=== PATIENT | female | born 1990 | race Two or more races ===

== ENCOUNTER 2024-04-30 20:01 | Observation (INO) | payer MEDICAID, SELFPAY ==
[2024-04-30] VITALS (10 sets, daily range): BP systolic 119–158; BP diastolic 61–93; PULSE 68–85; RESP 16–100; TEMP 36.6–36.7; O2SAT 100; BMI 56.0
--- NOTE | 2024-04-30 19:26 | PD.EDSOB ---
ED SOB =RME/HPI General Chief Complaint: Headache Stated Complaint: 32 WKS PREG, CONSTANT OHARA SINCE AM, SOB Time Seen by Provider: 04/30/24 19:19 Arrival date/time: 04/30/24 18:58 33F with history of pre-eclampsia presents to ED with 1 day of OHARA and several hours of SOB. Patient is 32 weeks . Patient denies CP, URI symptoms and unilateral leg swelling/pain. Patient needed to be seen in ED to be cleared to go upstairs. Limitations: no limitations Related Data Home Medications ?Medication ?Instructions ?Recorded ?Confirmed ferrous sulfate 325 mg (65 mg 325 mg PO QDAY 09/08/19 11/18/19 iron) tablet (iron) vitamins-iron fumarate 27 1 tab PO QDAY 09/08/19 11/18/19 mg iron-folic acid 0.8 mg tablet ( Vitamin) acetaminophen 500 mg tablet 500 mg PO Q6H PRN Pain 11/07/19 11/18/19 (Tylenol Extra Strength) Previous Rx's ?Medication ?Instructions ?Recorded fluticasone propionate 50 1 spray intranasal QDAY #16 grams 07/06/21 mcg/actuation nasal spray,suspension (Allergy Relief (fluticasone)) Allergies Allergy/AdvReac Type Severity Reaction Status Date / Time No Known Allergies Allergy Unknown Verified 04/30/24 19:00 Review of Systems Review of Systems Systems Reviewed: All systems reviewed, normal except as documented Constitutional Constitutional: Reports system reviewed and no additional complaints, except as documented, Reports as per HPI, Denies fever(s) and Reports headache(s) ENT Ears, Nose, Mouth, and Throat: Denies disequilibrium and Reports headache(s) Cardiovascular Cardiovascular: Reports system reviewed and no additional complaints, except as documented, Denies chest pain and Reports dyspnea Respiratory Respiratory: Reports system reviewed and no additional complaints, except as documented, Reports as per HPI, Denies cough and Reports dyspnea Gastrointestinal Gastrointestinal: Reports system reviewed and no additional complaints, except as documented, Denies abdominal pain, Denies nausea and Denies vomiting Neurologic Neurologic: Reports system reviewed and no additional complaints, except as documented, Denies confusion, Denies disequilibrium and Reports headache(s) Psychiatric Psychiatric: Denies confusion Past Medical History Past Medical History NEUROLOGIC: Positive Neurological Disorders and Migraine; Negative Seizures CARDIAC: Positive Cardiac Disorders and Hypertension (gestational); Negative Hypercholesterolemia or Congestive Heart Failure RESPIRATORY: Negative Chronic Obstructive Pulmonary Disease (COPD) GASTROINTESTINAL: Positive Gastrointestinal Disorders and Obesity GENITOURINARY: Negative Genitourinary Disorders or Renal Disease REPRODUCTIVE: Negative Previous Pregnancies MUSCULOSKELETAL: Negative Musculoskeletal Disorders ENDOCRINE: Negative Endocrine Disorders, Diabetes Mellitus Type 1 or Diabetes Mellitus Type 2 HEMATOLOGIC: Negative Blood Disorders OTHER HISTORY: Positive Hospitalization; Negative Blood Transfusions, Blood Transfusion Reaction or Anesthesia Reactions Family History FAMILY HISTORY: Negative Family Cardiac Disorders Surgical History SURGICAL: Negative Section Social History SMOKING STATUS: Never smoker ED Exam General Limitations: Present no limitations General appearance: Present alert and in no apparent distress Head Head exam: Present atraumatic Eye Eye exam: Present normal appearance, PERRL and EOMI ENT ENT exam: Present normal exam, normal oropharynx and mucous membranes moist Neck Neck exam: Present normal inspection, full ROM and trachea midline Chest Chest inspection: Present normal inspection and symmetric chest wall rise Respiratory Respiratory exam: Present normal lung sounds bilaterally Cardiovascular Cardiovascular exam: Present regular rate, normal rhythm and normal heart sounds Abdominal Exam Abdominal exam: Present soft and normal bowel sounds Extremities Exam Extremities exam: Present normal inspection and full ROM Back Exam Back exam: Present normal inspection and full ROM Neurological Exam Neurological exam: Present alert, oriented X3 and CN II-XII intact Psychiatric Psychiatric exam: Present normal affect and normal mood Skin Skin exam: Present warm, dry, intact and normal color Course Quality Measures none Vital Signs Vital signs: Vital Signs Temperature 97.9 F 04/30/24 19:07 Pulse Rate 68 04/30/24 19:07 Respiratory Rate 22 H 04/30/24 19:07 Blood Pressure 158/93 H 04/30/24 19:07 Pulse Oximetry (%) 100 04/30/24 19:07 Oxygen Delivery Method Room Air 04/30/24 19:07 O2 at 100% on RA and WNLs Shortness of Breath / Dyspnea MDM Narrative MDM Narrative:: 33F with history of pre-eclampsia presents to ED with 1 day of OHARA and several hours of SOB. Patient is 32 weeks . Patient denies CP, URI symptoms and unilateral leg swelling/pain. Patient needed to be seen in ED to be cleared to go upstairs. Physical exam reveals clear ENT and lungs. Normal WOB. Patient is afebrile, calm, and alert. Symptoms likely related to possible pre-eclampsia. Cleared to OB. Counseled if SOB remains after OB evaluates her, can come back. Patient data External records reviewed:: [facility] previous records Clinical information provided by:: patient Social determinants that could affect healthcare access:: none Patient has the following chronic illnesses:: pre-eclampsia How is presenting disease/condition affected by chronic disease/condition?: exacerbated by Evaluation data The following diagnostics were reviewed and interpreted by me:: other (specify) (none) Lab and/or radiology exams considered but not ordered:: not ordered Interpretation Summary: n/a Medications / Prescriptions Medications or Prescriptions considered but not ordered:: not ordered Medication administrations:: n/a Consultations Consultation(s) initiated? (list below): No Diagnosis Shortness of Breath Differential Diagnosis: acute exacerbation of chronic obstructive airways disease, congestive heart failure, community acquired pneumonia, asthma with exacerbation, pulmonary embolism and other (health screening, pre-eclampsia) Most likely diagnosis given after review of the tests above:: health screening Admission Indicated Admission indicated?: not indicated Admission Request Was there a request for admission?: No Disposition Plan Disposition Plan: Discharge Discharge Attestation Discharge Attestation: The patient and all family members were given an opportunity to ask questions and understood the discharge instructions. Discharge instructions specifically effects, indications for sooner follow up or return to the emergency department, and the expected course of current diagnosis. Patient condition: Stable Discharge Plan Plan Patient Disposition: HOME (Self Care) Disposition Comment: Stable Prescriptions/Referrals Prescriptions/Med Rec: No Action fluticasone propionate [Allergy Relief (fluticasone)] 50 mcg/actuation spray,suspension 1 spray intranasal QDAY Qty: 16 0RF Rx Instructions: administer into each nostril ferrous sulfate [iron] 325 mg (65 mg iron) Tablet 325 mg PO QDAY Vitamin 27 mg iron- 0.8 mg Tablet 1 tab PO QDAY acetaminophen [Tylenol Extra Strength] 500 mg Tablet 500 mg PO Q6H PRN (Reason: Pain) Problem List Clinical Impression: Encounter for health-related screening Patient/Caregiver Discharge Instructions Additional Instructions: Please follow-up with PCP within 24-48 hours and return immediately if symptoms worsen. Print Language: Palestinian Stand Alone Forms: Patient Portal Info Letter PA/SENIOR PREMIUM AUDITOR Supervising Physician NADEGE/BRYAN Supervising Physician: Dr. Luo
--- NOTE | 2024-04-30 19:43 | PC.NURSE ---
pt medically cleared, called up to OB for report.
--- NOTE | 2024-04-30 20:30 | XR_ITS ---
Examination: Transvaginal ultrasound of the pelvis, Limited Technique: Transvaginal sonographic images pelvis performed using camarena scale imaging Exam date and time: April 30, 2024 2146 hrs. Indications: Unknown cervical length Findings: Cervix 4.4 cm) Impression: Cervix 4.4 cm closed.
[2024-04-30 20:54] LABS: Collection Type, Urine Clean Catch
[2024-04-30] MEDS: RINGERS LACTATED 1000 ML 1,000 ML 999 ML IV (20:57)
[2024-04-30] MEDS: ACETAMINOPHEN 325 MG TABLET 650 MG PO (21:00)
[2024-04-30 21:06] LABS: Bacteria,Urine Rare; Bilirubin,Urine Negative (Negative); Blood,Urine Negative (Negative); Clarity,Urine Clear (Clear/Hazy); Color,Urine Lt-Yellow (Lt Yel-Yel); Glucose, Urine Negative (Negative); Hyaline Casts,Urine < 1 /hpf (0-1); Ketones,Urine Negative (Negative); Leukocyte Esterase,Urine Negative (Negative); Nitrite,Urine Negative (Negative); Protein,Urine Negative (Neg - Trace); RBC,Urine 2 /hpf (0-3); Specific Gravity,Urine 1.016 (1.001-1.035); Squamous Epithelial Cell,Urine 5 /hpf (0-5); Urobilinogen,Urine Negative mg/dL (0.0-1.0); WBC,Urine 2 /hpf (0-5)
[2024-04-30] MEDS: metFORMIN 500 MG TABLET PO (22:48)
--- NOTE | 2024-05-01 08:52 | PD.LDPN ---
Documentation for date of: 05/01/24 OB Labor Progress Note Status status: Category l Assessment and Plan Comments: Patient presented at 32wk for cramping, OHARA and SOB. Was cleared in ER for SOB before presenting to L&D. Normal vitals, afebrile Reactive NST, occasional ctx initially. Received 1L IVF and ctx fully resolved. Transvaginal cervical length showed cervical length 4.4cm. With IVF and tylenol, OHARA fully resolved. Patient feeling much better before discharge. She requested refill of metformin 500mg PO BID which I sent to her pharmacy. Follow up at routine ob visit Return precautions given Kim Armstrong MD
== END 2024-04-30 22:55 | disposition home or self-care (01) ==
PROVIDERS: Admitting Provider Obstetrics & Gynecology; PCP Family Medicine; Visit Provider Obstetrics & Gynecology
DX: O26.893 Other specified pregnancy related conditions, third trimester (principal); R51.9 Headache, unspecified; R10.30 Lower abdominal pain, unspecified; R06.02 Shortness of breath; Z3A.32 32 weeks gestation of pregnancy
CPT/HCPCS: 59025; 59899; 76830; 81001; G0378; J7120; A9270

== ENCOUNTER 2024-05-06 18:55 | Observation (INO) | payer MEDICAID, SELFPAY ==
[2024-05-06] VITALS (21 sets, daily range): BP systolic 131–154; BP diastolic 69–91; PULSE 86–107; RESP 15–100; TEMP 36.6; O2SAT 97–99; BMI 56.0
[2024-05-06 19:50] LABS: ROM Kit Lot # 578010271; ROM Swab Mixed By: RAWLT; Rupture of Fetal Membranes Negative (Negative); Swb Mxed in Solvent 1 min? Yes
[2024-05-06] MEDS: ACETAMINOPHEN 325 MG TABLET 1000 MG PO (20:03)
[2024-05-06 20:28] LABS: Basophils # (Auto) 0.1 Thou/mm3 (0.0-0.2); Basophils % (Auto) 1 % (0-2.5); Eosinophils # (Auto) 0.1 Thou/mm3 (0.0-0.5); Eosinophils % (Auto) 1 % (0-10); Hematocrit 35.1 % (36.0-46.0); Hemoglobin 11.6 g/dL (12.0-16.0); Immature Granulocytes % (Auto) 0 % (0-0); Immature Granulocytes Auto 0.02 Thou/mm3 (0.00-0.00); Lymphocytes # (Auto) 2.2 Thou/mm3 (1.0-4.8); Lymphocytes % (Auto) 21 % (10-50); Mean Corpuscular Hemoglobin 25.8 pg (25.0-35.0); Mean Corpuscular Volume 78 fL (80-100); Monocytes # (Auto) 0.8 Thou/mm3 (0.0-0.8); Monocytes % (Auto) 7 % (0-12); Neutrophils # (Auto) 7.5 Thou/mm3 (1.8-7.7); Neutrophils % (Auto) 70 % (37-80); Nucleated Red Blood Cell % 0 /100 WBC (0); Platelet Count 290 Thou/mm3 (140-440); RDW Standard Deviation 39.5 fL (36.4-46.3); White Blood Count 10.6 Thou/mm3 (3.6-11.0)
[2024-05-06 20:55] LABS: Alanine Aminotransferase 7 U/L (10-49); Albumin, Serum 3.9 gm/dL (3.5-5.0); Albumin/Globulin Ratio 1.3 (1.2-2.2); Alkaline Phosphatase 116 U/L (46-116); Anion Gap 10 (7-16); Aspartate Amino Transferase 15 U/L (0-34); BUN/Creatinine Ratio 15 Ratio (12-20); Bilirubin,Total 0.2 mg/dL (0.3-1.2); Blood Urea Nitrogen 9 mg/dL (9-23); Calcium 9.4 mg/dL (8.3-10.6); Calcium (Corrected) 9.5 mg/dL (8.5-10.1); Carbon Dioxide 22.4 mMol/L (20.0-31.0); Chloride 107 mMol/L (98-107); Creatinine (Component) 0.6 mg/dL (0.6-1.3); Estimated Creatinine Clearance 183.5 mL/min (>60); Globulin 2.9 gm/dL (2.3-3.5); Glucose 81 mg/dL (74-106); Osmolality,Calculated 275 (275-295); Potassium 4.1 mMol/L (3.4-5.1); Prothrombin Time 10.7 Seconds (9.0-12.2); Sodium 139 mMol/L (136-145); Total Protein 6.8 gm/dL (5.7-8.2); Uric Acid 4.3 mg/dL (3.1-7.8); eGFR > 60 See Note
[2024-05-06 20:58] LABS: Fibrinogen 703 mg/dL (175-375)
[2024-05-06 21:05] LABS: Collection Type, Urine Voided
[2024-05-06 21:20] LABS: Bacteria,Urine Rare; Bilirubin,Urine Negative (Negative); Blood,Urine Negative (Negative); Clarity,Urine Clear (Clear/Hazy); Color,Urine Lt-Yellow (Lt Yel-Yel); Glucose, Urine Negative (Negative); Hyaline Casts,Urine < 1 /hpf (0-1); Ketones,Urine Negative (Negative); Leukocyte Esterase,Urine Negative (Negative); Nitrite,Urine Negative (Negative); Protein,Urine Negative (Neg - Trace); RBC,Urine 1 /hpf (0-3); Specific Gravity,Urine 1.019 (1.001-1.035); Squamous Epithelial Cell,Urine 6 /hpf (0-5); Urobilinogen,Urine Negative mg/dL (0.0-1.0); WBC,Urine 3 /hpf (0-5)
== END 2024-05-06 21:36 | disposition home or self-care (01) ==
PROVIDERS: Admitting Provider Obstetrics & Gynecology; Visit Provider Obstetrics & Gynecology
DX: O26.893 Other specified pregnancy related conditions, third trimester (principal); Z3A.33 33 weeks gestation of pregnancy; M54.50 Low back pain, unspecified; R10.9 Unspecified abdominal pain
CPT/HCPCS: 36415; 59025; 80053; 81001; 84112; 84550; 85025; 85384; 85610; 85730; G0378; A9270

== ENCOUNTER 2024-05-26 13:44 | Outpatient (RCR) | payer MEDICAID, SELFPAY ==
--- NOTE | 2024-05-19 13:19 | XR_ITS ---
Examination: Biophysical profile, ultrasound Date and time of exam: May 19, 2024 1340 hours INDICATIONS: Diagnosis gestational diabetes Technique: Multiple transabdominal sonographic images of the pelvis abdomen obtained. Attention is directed to the breathing movement, gross body movement, amniotic fluid volume and tone. Findings: Amniotic fluid index 12.9 cm Total biophysical profile is 8 of 8. breathing movement is 2. Gross body movement is 2. tone is 2. Qualitative amniotic fluid volume is 2 Impression: Biophysical profile is 8 of 8.
[2024-05-19 14:27] VITALS: BP 156/79; PULSE 91; RESP 16; TEMP 36.7
--- NOTE | 2024-05-22 13:44 | XR_ITS ---
Examination: Biophysical profile, ultrasound Date and time of exam: May 22, 2024 1349 hours INDICATIONS: Diagnosis gestational diabetes Technique: Multiple transabdominal sonographic images of the pelvis abdomen obtained. Attention is directed to the breathing movement, gross body movement, amniotic fluid volume and tone. Findings: Amniotic fluid index 12.9 cm Total biophysical profile is 8 of 8. breathing movement is 2. Gross body movement is 2. tone is 2. Qualitative amniotic fluid volume is 2 Impression: Biophysical profile is 8 of 8.
[2024-05-22 14:04] VITALS: BP 187/86; PULSE 86; RESP 16; TEMP 36.7
[2024-05-22 14:51] LABS: Collection Type, Urine Clean Catch
[2024-05-22 15:03] LABS: Bacteria,Urine Rare; Bilirubin,Urine Negative (Negative); Blood,Urine Negative (Negative); Clarity,Urine Clear (Clear/Hazy); Color,Urine Lt-Yellow (Lt Yel-Yel); Glucose, Urine Negative (Negative); Ketones,Urine Trace (Negative); Leukocyte Esterase,Urine Negative (Negative); Nitrite,Urine Negative (Negative); PH,Urine 6.5 (5.0-7.0); Protein,Urine Trace (Neg - Trace); RBC,Urine 4 /hpf (0-3); Specific Gravity,Urine 1.032 (1.001-1.035); Squamous Epithelial Cell,Urine 5 /hpf (0-5); Urobilinogen,Urine Negative mg/dL (0.0-1.0); WBC,Urine 3 /hpf (0-5)
[2024-05-22 15:04] LABS: Basophils # (Auto) 0.1 Thou/mm3 (0.0-0.2); Basophils % (Auto) 1 % (0-2.5); Eosinophils # (Auto) 0.1 Thou/mm3 (0.0-0.5); Eosinophils % (Auto) 1 % (0-10); Hematocrit 31.9 % (36.0-46.0); Hemoglobin 10.5 g/dL (12.0-16.0); Immature Granulocytes % (Auto) 0 % (0-0); Immature Granulocytes Auto 0.02 Thou/mm3 (0.00-0.00); Lymphocytes # (Auto) 1.6 Thou/mm3 (1.0-4.8); Lymphocytes % (Auto) 18 % (10-50); Mean Corpuscular HGB Conc 32.9 g/dl (31.0-37.0); Mean Corpuscular Hemoglobin 25.4 pg (25.0-35.0); Mean Corpuscular Volume 77 fL (80-100); Monocytes # (Auto) 0.6 Thou/mm3 (0.0-0.8); Monocytes % (Auto) 6 % (0-12); Neutrophils # (Auto) 6.8 Thou/mm3 (1.8-7.7); Neutrophils % (Auto) 75 % (37-80); Nucleated Red Blood Cell % 0 /100 WBC (0); Platelet Count 232 Thou/mm3 (140-440); RDW Standard Deviation 40.1 fL (36.4-46.3); Red Blood Count 4.13 Miln/mm3 (4.00-5.20); White Blood Count 9.1 Thou/mm3 (3.6-11.0)
[2024-05-22 15:24] LABS: Alanine Aminotransferase 10 U/L (10-49); Albumin, Serum 3.5 gm/dL (3.5-5.0); Albumin/Globulin Ratio 1.3 (1.2-2.2); Alkaline Phosphatase 124 U/L (46-116); Anion Gap 10 (7-16); Aspartate Amino Transferase 15 U/L (0-34); BUN/Creatinine Ratio 14 Ratio (12-20); Bilirubin,Total 0.2 mg/dL (0.3-1.2); Blood Urea Nitrogen 11 mg/dL (9-23); Calcium (Corrected) 9.4 mg/dL (8.5-10.1); Carbon Dioxide 20.9 mMol/L (20.0-31.0); Chloride 108 mMol/L (98-107); Creatinine (Component) 0.8 mg/dL (0.6-1.3); Globulin 2.6 gm/dL (2.3-3.5); Glucose 74 mg/dL (74-106); LDH (Lactate Dehydrogenase) 160 U/L (120-246); Osmolality,Calculated 275 (275-295); Sodium 139 mMol/L (136-145); Total Protein 6.1 gm/dL (5.7-8.2); Uric Acid 5.9 mg/dL (3.1-7.8); eGFR > 60 See Note
[2024-05-22 15:30] LABS: INR 0.9 (0.9-1.3); Partial Thromboplastin Time 26.5 Seconds (22.0-36.0); Prothrombin Time 10.1 Seconds (9.0-12.2)
[2024-05-22 15:44] LABS: Fibrinogen 602 mg/dL (175-375)
--- NOTE | 2024-05-26 13:48 | XR_ITS ---
Examination: Biophysical profile, ultrasound Date and time of exam: May 26, 2024 1354 hrs. Indications: Diagnosis gestational diabetes Technique: Multiple transabdominal sonographic images of the pelvis abdomen obtained. Attention is directed to the breathing movement, gross body movement, amniotic fluid volume and tone. Findings: Amniotic fluid 14.2 cm Total biophysical profile is 8 of 8. breathing movement is 2. Gross body movement is 2. tone is 2. Qualitative amniotic fluid volume is 2 Impression: Biophysical profile is 8 of 8.
[2024-05-26 14:44] VITALS: BP 142/79; PULSE 83; RESP 16; TEMP 36.7
--- NOTE | 2024-05-26 15:58 | PD.LDHP ---
Documentation for date of: 05/26/24 OB Labor/Induct. HPI History of Present Illness : 3 Para: 2 Term pregnancies: 0 pregnancies: 0 Living children: 0 History of Abortions: Spontaneous and Elective: 0 History of sections: No History of : No Date of last menstrual period: 09/17/23 Gestational age based on last menstrual period: 38 History of present illness: 33 yh/o @36w0d was here for NST appointment. Patient had scheduled monitory for surveillance as she is a Gestational diabetic on insulin.Today on presentation andrew had elevated BP. On note she has 2 previous pregnancies affected by preclampsia. Recently andrew had elevated [facility] in her last appointmnet . Denied any headache, blurred vision , epigastric pain or SOB today . Persistent severe BP reading seen. History of Present Dating criteria: LMP confirmed by 1st trimester US Abnormal ultrasound findings: anatomy US normal fundal placenta no previa Labs Narrative: pending preeclampsia labs NIPT Low risk Past Medical History Surgical History SURGICAL: Negative Section Meds Home Medications and Allergies Home Medications ?Medication ?Instructions ?Recorded ?Confirmed ?Type ferrous sulfate 325 mg (65 mg 325 mg PO QDAY 09/08/19 05/06/24 History iron) tablet (iron) vitamins-iron fumarate 27 1 tab PO QDAY 09/08/19 05/06/24 History mg iron-folic acid 0.8 mg tablet ( Vitamin) acetaminophen 500 mg tablet 500 mg PO Q6H PRN Pain 11/07/19 05/06/24 History (Tylenol Extra Strength) aripiprazole 5 mg tablet 15 mg PO QDAY 05/06/24 05/06/24 History Allergies Allergy/AdvReac Type Severity Reaction Status Date / Time No Known Allergies Allergy Unknown Verified 05/06/24 19:21 OB Exam Physical Exam Vital signs: Temp Pulse Resp BP 98.0 F 83 16 142/79 H 05/22/24 14:04 05/26/24 14:44 05/26/24 14:44 05/26/24 14:44 Constitutional Constitutional: no acute distress Routine HEENT Exam Head: Present normocephalic and atraumatic Eye: Present EOMI and PERRL ENT: Present mucous membranes moist Routine Neck Exam Neck: Present supple and trachea midline Routine Cardiovascular Exam Cardiovascular: Present RRR Routine Abdominal Exam Abdominal: Present soft and normoactive bowel sounds Detailed Labor and Delivery Exam Comments: closed occasional contractions Routine Extremities Exam Extremities: Present full ROM Routine Skin Exam Skin: Present intact, dry and warm Routine Neurological Exam Neurological: Present alert, oriented X3 and CN II-XII intact Routine Psychiatric Exam Psychiatric: Present normal affect and normal thought process OB Results Labs 05/22/24 14:35 05/22/24 14:55 Impressions Impression: 33 Y/O @36W0D , Per LMP 1st trimesterUS, admitted for severe preeclampsia Elevtaed BP in severe range persistently On checking all her visits , BP were in 110-120s, Until last clinic visit Asymptomatic otherwise PreE labs pending , normal on 3rd h/o preE in all pregnancies GDM on insulin Previous Csection x2 fundal placenta OB Assessment & Plan Additional Plan Additional Plan Comment: admit to L&D Magnesium for seizure prophylaxis IV labetalol 20 boarded for RLTCS I explained the patient the indication of sever preE and timing of delivery 34 week or beyond at diagnosis Risk of prematurity explained Risk of continuing includes abruption , Seizure , stroke, IUFD.
[2024-05-26 16:55] LABS: Collection Type, Urine Clean Catch; RBC,Urine 0 /hpf (0-3)
[2024-05-26 17:05] LABS: Bilirubin,Urine Negative (Negative); Blood,Urine Negative (Negative); Clarity,Urine Clear (Clear/Hazy); Color,Urine Lt-Yellow (Lt Yel-Yel); Glucose, Urine Negative (Negative); Ketones,Urine Negative (Negative); Leukocyte Esterase,Urine Negative (Negative); Nitrite,Urine Negative (Negative); PH,Urine 6.5 (5.0-7.0); Protein,Urine Negative (Neg - Trace); Specific Gravity,Urine 1.012 (1.001-1.035); Squamous Epithelial Cell,Urine 2 /hpf (0-5); Urobilinogen,Urine Negative mg/dL (0.0-1.0); WBC,Urine 1 /hpf (0-5)
== END 2024-05-26 23:59 | disposition home or self-care (01) ==
LOC: S4S1 13:44
PROVIDERS: Obstetrics & Gynecology; PCP Family Medicine; Referring Provider Student in an Organized Health Care Education/Training Program; Visit Provider Student in an Organized Health Care Education/Training Program
DX: O24.414 Gestational diabetes mellitus in pregnancy, insulin controlled (principal); Z3A.36 36 weeks gestation of pregnancy
CPT/HCPCS: 36415; 59025; 76819; 80053; 81001; 83615; 84550; 85025; 85384; 85610; 85730

== ENCOUNTER 2024-05-26 15:54 | Inpatient (IN) | payer MEDICAID, SELFPAY ==
[2024-05-26] VITALS (43 sets, daily range): BP systolic 118–186; BP diastolic 66–105; PULSE 73–89; RESP 12–30; TEMP 36.7–36.8; O2SAT 95–100; BMI 56.3
--- NOTE | 2024-05-26 15:58 | ESHP_ITS ---
Documentation for date of: 05/26/24 OB Labor/Induct. HPI History of Present Illness : 3 Para: 2 Term pregnancies: 0 pregnancies: 0 Living children: 0 History of Abortions: Spontaneous and Elective: 0 History of sections: No History of : No Date of last menstrual period: 09/17/23 Gestational age based on last menstrual period: 38 History of present illness: 33 yh/o @36w0d was here for NST appointment. Patient had scheduled monitory for surveillance as she is a Gestational diabetic on insulin.Today on presentation andrew had elevated BP. On note she has 2 previous pregnancies affected by preclampsia. Recently andrew had elevated BP in [facility] in her last appointmnet . Denied any headache, blurred vision , epigastric pain or SOB today . Persistent severe BP reading seen. History of Present Dating criteria: LMP confirmed by 1st trimester US Abnormal ultrasound findings: anatomy US normal fundal placenta no previa Labs Narrative: pending preeclampsia labs NIPT Low risk Past Medical History Surgical History SURGICAL: Negative Section Meds Home Medications and Allergies Home Medications ?Medication ?Instructions ?Recorded ?Confirmed ?Type ferrous sulfate 325 mg (65 mg 325 mg PO QDAY 09/08/19 05/06/24 History iron) tablet (iron) vitamins-iron fumarate 27 1 tab PO QDAY 09/0705/06/24 History mg iron-folic acid 0.8 mg tablet ( Vitamin) acetaminophen 500 mg tablet 500 mg PO Q6H PRN Pain 05/06/24 History (Tylenol Extra Strength) aripiprazole 5 mg tablet 15 mg PO QDAY 05/06/2405/06 History Allergies Allergy/AdvReac Type Severity Reaction Status Date / Time No Known Allergies Allergy Unknown Verified 05/06/24 19:21 OB Exam Physical Exam Vital signs: Temp Pulse Resp BP 98.0 F 83 16 142/79 H 05/22/24 14:04 05/26/24 14:44 05/26/24 14:44 05/26/24 14:44 Constitutional Constitutional: no acute distress Routine HEENT Exam Head: Present normocephalic and atraumatic Eye: Present EOMI and PERRL ENT: Present mucous membranes moist Routine Neck Exam Neck: Present supple and trachea midline Routine Cardiovascular Exam Cardiovascular: Present RRR Routine Abdominal Exam Abdominal: Present soft and normoactive bowel sounds Detailed Labor and Delivery Exam Comments: closed occasional contractions Routine Extremities Exam Extremities: Present full ROM Routine Skin Exam Skin: Present intact, dry and warm Routine Neurological Exam Neurological: Present alert, oriented X3 and CN II-XII intact Routine Psychiatric Exam Psychiatric: Present normal affect and normal thought process OB Results Labs 05/22/24 14:35 05/22/24 14:55 Impressions Impression: 33 Y/O @36W0D , Per LMP 1st trimesterUS, admitted for severe preeclampsia Elevtaed BP in severe range persistently On checking all her visits , BP were in 110-120s, Until last clinic visit Asymptomatic otherwise PreE labs pending , normal on 3rd h/o preE in all pregnancies GDM on insulin Previous Csection x2 fundal placenta OB Assessment & Plan Additional Plan Additional Plan Comment: admit to L&D Magnesium for seizure prophylaxis IV labetalol 20 boarded for RLTCS I explained the patient the indication of sever preE and timing of delivery 34 week or beyond at diagnosis Risk of prematurity explained Risk of continuing includes abruption , Seizure , stroke, IUFD.
[2024-05-26] MEDS: NIFEdipine XL 30 MG TABCR PO ×2 (16:06→21:56)
[2024-05-26] MEDS: LABETALOL INJ 5 MG/ML VIAL 20 ML 20 MG IVP (16:36)
[2024-05-26] MEDS: Magnesium Sulfate 4 GM Ivpb 4 GM/50 ML BAG IV (16:48)
[2024-05-26 17:04] LABS: Basophils # (Auto) 0.1 Thou/mm3 (0.0-0.2); Basophils % (Auto) 1 % (0-2.5); Eosinophils # (Auto) 0.1 Thou/mm3 (0.0-0.5); Eosinophils % (Auto) 1 % (0-10); Hematocrit 32.6 % (36.0-46.0); Hemoglobin 10.8 g/dL (12.0-16.0); Immature Granulocytes % (Auto) 0 % (0-0); Immature Granulocytes Auto 0.01 Thou/mm3 (0.00-0.00); Lymphocytes % (Auto) 23 % (10-50); Mean Corpuscular HGB Conc 33.1 g/dl (31.0-37.0); Mean Corpuscular Hemoglobin 25.5 pg (25.0-35.0); Mean Corpuscular Volume 77 fL (80-100); Monocytes # (Auto) 0.6 Thou/mm3 (0.0-0.8); Monocytes % (Auto) 6 % (0-12); Neutrophils % (Auto) 69 % (37-80); Nucleated Red Blood Cell % 0 /100 WBC (0); Platelet Count 235 Thou/mm3 (140-440); RDW Standard Deviation 40.1 fL (36.4-46.3); Red Blood Count 4.23 Miln/mm3 (4.00-5.20); White Blood Count 8.6 Thou/mm3 (3.6-11.0)
[2024-05-26] MEDS: LABETALOL INJ 5 MG/ML VIAL 20 ML 40 MG IVP (17:17)
[2024-05-26 17:20] LABS: Albumin, Serum 3.7 gm/dL (3.5-5.0); Albumin/Globulin Ratio 1.3 (1.2-2.2); Alkaline Phosphatase 139 U/L (46-116); Anion Gap 9 (7-16); Aspartate Amino Transferase 13 U/L (0-34); BUN/Creatinine Ratio 12 Ratio (12-20); Bilirubin,Total 0.3 mg/dL (0.3-1.2); Blood Urea Nitrogen 7 mg/dL (9-23); Calcium 9.1 mg/dL (8.3-10.6); Calcium (Corrected) 9.3 mg/dL (8.5-10.1); Chloride 107 mMol/L (98-107); Creatinine (Component) 0.6 mg/dL (0.6-1.3); Globulin 2.8 gm/dL (2.3-3.5); Glucose 73 mg/dL (74-106); Magnesium 1.8 mg/dL (1.6-2.6); Osmolality,Calculated 272 (275-295); Potassium 3.7 mMol/L (3.4-5.1); Sodium 138 mMol/L (136-145); Total Protein 6.5 gm/dL (5.7-8.2); Uric Acid 5.6 mg/dL (3.1-7.8); eGFR > 60 See Note
[2024-05-26] MEDS: MAGNESIUM SULF 20 GM IVPB 20 GM/500 ML BAG IV (17:20)
[2024-05-26 17:28] LABS: Alanine Aminotransferase 10 U/L (10-49)
[2024-05-26 17:34] LABS: Syphilis Nonreactive (Nonreactive)
[2024-05-26] MEDS: ceFAZolin/D5W 2 GM IV 2 GM/100 ML BAG IV (17:51)
[2024-05-26] MEDS: METOCLOPRAMIDE INJ 5 MG/ML VIAL 2 ML 10 MG IVP (17:52)
[2024-05-26 18:33] LABS: INR 0.9 (0.9-1.3); Partial Thromboplastin Time 26.4 Seconds (22.0-36.0); Prothrombin Time 9.8 Seconds (9.0-12.2)
[2024-05-26 18:35] LABS: Fibrinogen 666 mg/dL (175-375)
[2024-05-26] MEDS: ONDANSETRON INJ 2 MG/ML INJ 2 ML 4 MG IV (20:52)
[2024-05-26] MEDS: OXYTOCIN in NS 20 units 20 UNIT/1,000 ML BAG 125 UNIT IV (20:57)
[2024-05-26] MEDS: DiphenhydrAMINE INJ 50 MG/ML VIAL 25 MG IV (21:31)
--- NOTE | 2024-05-26 21:39 | PD.LDDELS ---
Data (Ramirez) Data Hx Section: Yes : 3 Para: 2 Term: 2 : 0 : 0 Delivery Data (Ramirez) Labor Data ROM Date: 05/26/24 ROM Time: 18:49 Rupture Type: AROM Amniotic Fluid: Clear Delivery Data Delivery Date: 05/26/24 Delivery Time: 18:49 Gestational age (weeks): 36 Placenta Delivery Date: 05/26/24 Placenta Delivery Time: 18:50 Delivered by: James Dunaway Delivery nurse: Yudy Betancur Other staff at delivery: 2nd Nurse Other staff at delivery: AMARJIT Other staff at delivery: Nursery Nurse Other staff at delivery: Rosa Wilkerson Other staff at delivery: Efrain Wayne Other staff at delivery: Jovanna Espinosa Delivery Method Delivery: Delivery Type: Repeat Presentation: Vertex Anesthesia Type Primary Anesthesia: Spinal Placenta Placenta Delivery: Manual EBL Estimated blood loss (ml): 400 Umbilical Cord Nuchal Cord: x1 [place] Data (Ramirez) Data Infant Gender: Male Weight Grams: 3585 1 Minute Total: 8 5 Minute Total: 8
--- NOTE | 2024-05-26 21:40 | ESOP_ITS ---
Operative Note - GUILLOTINE OPERATOR Procedure Date of procedure: 05/26/24 Procedure Performed: repeat Low transverse Csection Indication: preclampsia with severe features previous Csection x2 Morbid obesity GDMA2 on insulin Pre-Op diagnosis: same Post-Op diagnosis: same Anesthesia type: Spinal Procedure description: Informed consent was obtained and the patient was taken to the operating room.? Identity was confirmed by double identifiers and she was placed on the operating table.The abdomen and perineum were prepped in the usual sterile fashion and a Greer catheter was placed to continuous drainage.? Sterile drapes were applied.??A Pfannenstiel skin incision was made with a scalpel and carried to the subcutaneous fat up to the rectus fascia.? The rectus fascia was incised on either side of the midline and the incisions were extended bilaterally.? The fascia was gently dissected off the ventral surface of the rectus muscle both superiorly and inferiorly. extensive adhesiolysis was done between musle , peritoneum. Carefully a peritioneal window created hysterotomy incision made and extended bluntly with finger. Rupture of membranes revealed clear fluid. The baby was found vertex presentation and was delivered via vertex. The umbilical cord , was doubly clamped, divided and the infant was handed over to the waiting team. The placenta delivered by controlled cord traction . The interior of the uterus was now thorougly cleaned of all blood and debris and membranes.?The? hysterotomy was closed using 0 vicryl suture in double layers. Once the repair was completed the hysterotomy was inspected, was noted to be adequately hemostatic. The rectus fascia was repaired using PDS in a running fashion.? The subcutaneous layer was now, approximated with 3-0 vicryl in double layers.? All bleeding points were cauterized using the Bovie.?The skin was closed using 4-0 Monocryl in a subcuticular fashion.? The skin was cleaned and a sterile dressing was applied. The patient was now undraped, the abdomen and back were thoroughly cleaned and she was now transferred to the recovery room in a stable condition Estimated blood loss (ml): 400 Surgical staff Operation Date: 05/26/24 18:00 Case Staff Assisting Surgeon: James Dunaway SALESFORCE BUSINESS ANALYST: Efrain Wayne RN First Assistant: Spring Reilly Diagnosis Problem List Completed Was Problem List Reviewed/Reconciled?: Yes
[2024-05-26 22:01] LABS: Magnesium 2.9 mg/dL (1.6-2.6)
[2024-05-27] VITALS (16 sets, daily range): BP systolic 104–140; BP diastolic 65–86; PULSE 76–90; RESP 17–19; TEMP 36.2–37.3; O2SAT 96–99
[2024-05-27] MEDS: KETOROLAC INJ 30 MG/ML VIAL IVP ×4 (00:13→18:16)
[2024-05-27 00:47] LABS: Basophils # (Auto) 0.1 Thou/mm3 (0.0-0.2); Basophils % (Auto) 1 % (0-2.5); Eosinophils # (Auto) 0.1 Thou/mm3 (0.0-0.5); Eosinophils % (Auto) 1 % (0-10); Hematocrit 33.5 % (36.0-46.0); Immature Granulocytes % (Auto) 0 % (0-0); Immature Granulocytes Auto 0.04 Thou/mm3 (0.00-0.00); Lymphocytes % (Auto) 16 % (10-50); Mean Corpuscular HGB Conc 32.8 g/dl (31.0-37.0); Mean Corpuscular Hemoglobin 25.2 pg (25.0-35.0); Mean Corpuscular Volume 77 fL (80-100); Monocytes # (Auto) 0.5 Thou/mm3 (0.0-0.8); Monocytes % (Auto) 4 % (0-12); Neutrophils # (Auto) 10.1 Thou/mm3 (1.8-7.7); Neutrophils % (Auto) 79 % (37-80); Nucleated Red Blood Cell % 0 /100 WBC (0); Platelet Count 214 Thou/mm3 (140-440); Red Blood Count 4.37 Miln/mm3 (4.00-5.20); White Blood Count 12.9 Thou/mm3 (3.6-11.0)
[2024-05-27] MEDS: MAGNESIUM SULF 20 GM IVPB 20 GM/500 ML BAG IV ×2 (05:01→16:09)
[2024-05-27 10:12] LABS: Basophils # (Auto) 0.1 Thou/mm3 (0.0-0.2); Basophils % (Auto) 1 % (0-2.5); Eosinophils # (Auto) 0.1 Thou/mm3 (0.0-0.5); Eosinophils % (Auto) 1 % (0-10); Hematocrit 33.7 % (36.0-46.0); Hemoglobin 10.9 g/dL (12.0-16.0); Immature Granulocytes % (Auto) 1 % (0-0); Immature Granulocytes Auto 0.05 Thou/mm3 (0.00-0.00); Lymphocytes % (Auto) 10 % (10-50); Mean Corpuscular HGB Conc 32.3 g/dl (31.0-37.0); Mean Corpuscular Hemoglobin 25.5 pg (25.0-35.0); Mean Corpuscular Volume 79 fL (80-100); Monocytes # (Auto) 0.5 Thou/mm3 (0.0-0.8); Monocytes % (Auto) 5 % (0-12); Neutrophils # (Auto) 8.3 Thou/mm3 (1.8-7.7); Neutrophils % (Auto) 83 % (37-80); Nucleated Red Blood Cell % 0 /100 WBC (0); Platelet Count 208 Thou/mm3 (140-440); Red Blood Count 4.28 Miln/mm3 (4.00-5.20)
[2024-05-27] MEDS: RINGERS LACTATED 1000 ML 1,000 ML 100 ML IV (10:29)
[2024-05-27 10:41] LABS: Alanine Aminotransferase 9 U/L (10-49); Albumin, Serum 3.4 gm/dL (3.5-5.0); Albumin/Globulin Ratio 1.5 (1.2-2.2); Alkaline Phosphatase 119 U/L (46-116); Anion Gap 7 (7-16); Aspartate Amino Transferase 17 U/L (0-34); BUN/Creatinine Ratio 8 Ratio (12-20); Bilirubin,Total 0.3 mg/dL (0.3-1.2); Blood Urea Nitrogen < 5 mg/dL (9-23); Calcium 7.9 mg/dL (8.3-10.6); Calcium (Corrected) 8.4 mg/dL (8.5-10.1); Carbon Dioxide 23.3 mMol/L (20.0-31.0); Chloride 106 mMol/L (98-107); Creatinine (Component) 0.6 mg/dL (0.6-1.3); Estimated Creatinine Clearance 184.3 mL/min (>60); Globulin 2.2 gm/dL (2.3-3.5); Glucose 158 mg/dL (74-106); Magnesium 3.9 mg/dL (1.6-2.6); Osmolality,Calculated 272 (275-295); Potassium 3.4 mMol/L (3.4-5.1); Sodium 136 mMol/L (136-145); Total Protein 5.6 gm/dL (5.7-8.2); eGFR > 60 See Note
--- NOTE | 2024-05-27 10:48 | PC.SS ---
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 LICENSED PHYSICAL THERAPIST ASSISTANT introduced self and role.? Present at patient?s bedsides was cousin, Sully.? Patient gave permission for cousin to be present during discussion.? Patient confirmed possessing diagnosis of Bi-Polar disorder.? Patient informed LICENSED PHYSICAL THERAPIST ASSISTANT alignment with psychiatric and counseling services.? Patient is prescribed Abilify.? Patient did take medication during 1st trimester of .? Patient to resume medication.? Patient reports no impairment with daily functioning.? Patient denies history of psychiatric hospitalizations.? Patient denies history of self-harm behaviors.? Infant, Julius; is the patient?s 3rd child.? Other children are ages 4yrs and 17 months.? delivered via .? Patient plans on combo feeding .? OB services provided by Dr. Dunaway.? Patient describes consistency with OB appointments.? Patient is receiving WIC, SNAP or TANF.? Patient denies history of alcohol/drug abuse.? Patient denies CWS intervention.? Patient denies episodes of domestic violence.? Doug SANDS; will not be participating in the rearing of the .? Patient denies possessing current level of depression.? Patient was engaged and responsive throughout discussion with LICENSED PHYSICAL THERAPIST ASSISTANT.? Patient has access to appropriate supplies and equipment; to include a car seat.? Family will provide transportation upon discharge.? Patient describes possessing support system consisting of mother and extended family.? LICENSED PHYSICAL THERAPIST ASSISTANT provided the patient with community resources to include Parenting Network and Warm Line.? No further intervention required at this time, health social work professor will be available to address any further concerns.? LICENSED PHYSICAL THERAPIST ASSISTANT updated bedside nurse.? Patient inquired if able to re-start Abilify home medication.? LICENSED PHYSICAL THERAPIST ASSISTANT updated bedside nurse on patient?s request.? Bedside nurse to follow up with the patient.?
[2024-05-27] MEDS: ACETAMINOPHEN 325 MG TABLET 650 MG PO ×2 (11:33→21:15)
--- NOTE | 2024-05-27 12:49 | ESPR_ITS ---
Subjective Subjective Interval history: Patient doing well overall. Pain is controlled. Receiving IV MgSO4 for 24hr PP for pre-eclampsia with severe features, so not yet ambulating. Greenfield in place draining clear yellow urine. Tolerated breakfast without nausea/vomiting. No fevers/chills, no CP/SOB. Exam Vital Signs Temp Pulse Resp BP Pulse Ox O2 Del Method 98.0 F 86 17 138/82 H 98 Room Air 05/27/24 10:10 05/27/24 10:10 05/27/24 10:10 05/27/24 10:10 05/27/24 10:10 05/27/24 10:10 Narrative Exam General: well developed, well nourished, no acute distress, conversant Cardiac: normal heart rate Lungs: breathing without distress Abdomen: soft, post-gravid, non-tender, no rebound or guarding, pressure dressing removed, pfannenstiel incision covered by dry/clean/intact prineo bandage. Incision well reapproximated. No erythema, drainage or induration. Fundus firm at u-2cm. Extremities: no pain with palpation of calves, trace edema of BLE, SCDs on and functioning Objective Labs 05/27/24 09:37 05/27/24 09:37 Labs: Laboratory Results - last 24 hr 05/26/24 05/26/24 05/27/24 16:30 21:21 00:25 WBC 8.6 12.9 H D RBC 4.23 4.37 Hgb 10.8 L 11.0 L Hct 32.6 L 33.5 L MCV 77 L 77 L MCH 25.5 25.2 MCHC 33.1 32.8 RDW Std Deviation 40.1 40.0 Plt Count 235 214 Neut % (Auto) 69 79 Lymph % (Auto) 23 16 [place] % (Auto) 6 4 Eos % (Auto) 1 1 Baso % (Auto) 1 1 Neut # (Auto) 6.0 10.1 H Lymph # (Auto) 2.0 2.0 [place] # (Auto) 0.6 0.5 Eos # (Auto) 0.1 0.1 Baso # (Auto) 0.1 0.1 Immature Gran # (Auto) 0.01 H 0.04 H Absolute Nucleated RBC 0.00 0.00 Immature Gran % 0 0 Nucleated RBC % 0 0 PT 9.8 INR 0.9 APTT 26.4 Fibrinogen 666 H* Sodium 138 Potassium 3.7 Chloride 107 Carbon Dioxide 22.0 Anion Gap 9 BUN 7 L Creatinine 0.6 Estim Creat Clear Calc Not Performed. eGFR > 60 BUN/Creatinine Ratio 12 Glucose 73 L Calculated Osmolality 272 L Uric Acid 5.6 Calcium 9.1 Corrected Calcium 9.3 Magnesium 1.8 2.9 H Total Bilirubin 0.3 AST 13 ALT 10 Alkaline Phosphatase 139 H Total Protein 6.5 Albumin 3.7 Globulin 2.8 Albumin/Globulin Ratio 1.3 Syphilis Serology Nonreactive Blood Type O Positive Antibody Screen NEGATIVE Blood Bank Wristband ID Yes 05/27/24 09:37 WBC 10.0 RBC 4.28 Hgb 10.9 L Hct 33.7 L MCV 79 L MCH 25.5 MCHC 32.3 RDW Std Deviation 42.0 Plt Count 208 Neut % (Auto) 83 H Lymph % (Auto) 10 [place] % (Auto) 5 Eos % (Auto) 1 Baso % (Auto) 1 Neut # (Auto) 8.3 H Lymph # (Auto) 1.0 [place] # (Auto) 0.5 Eos # (Auto) 0.1 Baso # (Auto) 0.1 Immature Gran # (Auto) 0.05 H Absolute Nucleated RBC 0.00 Immature Gran % 1 H Nucleated RBC % 0 PT INR APTT Fibrinogen Sodium 136 Potassium 3.4 Chloride 106 Carbon Dioxide 23.3 Anion Gap 7 BUN < 5 L Creatinine 0.6 Estim Creat Clear Calc 184.3 eGFR > 60 BUN/Creatinine Ratio 8 L Glucose 158 H D Calculated Osmolality 272 L Uric Acid Calcium 7.9 L Corrected Calcium 8.4 L Magnesium 3.9 H Total Bilirubin 0.3 AST 17 ALT 9 L Alkaline Phosphatase 119 H D Total Protein 5.6 L Albumin 3.4 L Globulin 2.2 L Albumin/Globulin Ratio 1.5 Syphilis Serology Blood Type Antibody Screen Blood Bank Wristband ID Assessment & Plan Problem List (1) Pre-eclampsia, severe, delivered: Status: Acute Assessment and plan: Kiki is a 33yo G3 nowP3 s/p uncomplicated RLTCS at 36wk for pre-eclampsia with severe features, doing well on POD 1. She is receiving IV MgSO4 for 24hr PP. Vitals wnl, benign exam. Nifedipine was held this morning for normotensive bp's. She is hemodynamically stable with no evidence of infection. Post-op Hgb 10.9. complicated by: -A2GDM treated with insulin (lantus 12u am, 10u qhs) -Hx of section x2 -Hx of pre-eclampsia x2 -Severe obesity (BMI 56 currently) -Bipolar disorder taking abilify 15mg PO QD Plan: -Continue routine /post-op care -Continue IV MgSO4 until 24hr post- with Mg checks, neuro checks and greenfield catheter in place for strict I/Os -Once IV MgSO4 is discontinued, remove greenfield with 6hr due to void -Carb consistent diet -Fingerstick glucose checks QID. Will half insulin regimen to lantus 5u qam and qhs. -Toradol 30mg IV Q6hr x4 doses, then motrin 800mg PO Q8hr. For breakthrough: norco 5/325mg PO Q6hr prn pain -Continue abilify -Resume nifedipine if bp's persistently mild range -Encourage ambulation once IV MgSO4 is stopped and use of IS (2) care following delivery: Status: Acute (3) Gestational diabetes requiring insulin: Status: Acute (4) Obesity compl pregn//puerperp: Status: Acute (5) Bipolar disease during in third trimester: Status: Acute Time Spent With Patient Time: Total time spent is greater than 50% in coordination of care (as documented) at patient's floor/unit and/or counseling patient:
[2024-05-27] MEDS: INSULIN GLARGINE (Lantus) 5 UNIT/0.05 ML (PER 5 UNITS) SC (18:14)
[2024-05-28] VITALS (11 sets, daily range): BP systolic 121–153; BP diastolic 70–92; PULSE 80–89; RESP 16–19; TEMP 36.7–36.9; O2SAT 95–98
[2024-05-28] MEDS: HYDROcodone/APAP 5/325 TABLET 2 TAB PO ×4 (02:04→22:03)
[2024-05-28] MEDS: NIFEdipine XL 30 MG TABCR PO ×2 (08:25→20:51)
[2024-05-28] MEDS: INSULIN GLARGINE (Lantus) 5 UNIT/0.05 ML (PER 5 UNITS) SC ×2 (08:30→18:38)
[2024-05-28] MEDS: IBUPROFEN TAB 400 MG TABLET 800 MG PO ×2 (12:41→20:51)
--- NOTE | 2024-05-28 15:18 | PD.LDPPPRG ---
Subjective Subjective Interval history: Patient doing well overall. Pain is controlled. She is ambulating no lightheadedness/dizziness. Voiding spontaneously since greenfield was removed, no issues. Tolerating regular diet without nausea/vomiting. Passing gas, no BM yet. No fevers/chills, no CP/SOB. No OHARA/vision changes/RUQ pain. Baby now in room with her. Exam Vital Signs Temp Pulse Resp BP Pulse Ox O2 Del Method 98.5 F 87 17 140/86 H 97 Room Air 05/28/24 12:41 05/28/24 12:30 05/28/24 12:30 05/28/24 12:30 05/28/24 12:30 05/28/24 12:30 Narrative Exam General: well developed, well nourished, no acute distress, conversant Cardiac: normal heart rate Lungs: breathing without distress Abdomen: soft, post-gravid, non-tender, no rebound or guarding, pfannenstiel incision covered by dry/clean/intact prineo bandage. Incision well reapproximated. No erythema, drainage or induration. Fundus firm at u-2cm. Extremities: no pain with palpation of calves, 1+ edema of BLE Objective Labs 05/27/24 09:37 05/27/24 09:37 Labs: Laboratory Results - last 24 hr 05/27/24 15:10 Magnesium 4.0 H Assessment & Plan Problem List (1) Pre-eclampsia, severe, delivered: Status: Acute Assessment and plan: Kiki is a 33yo G3 nowP3 s/p uncomplicated RLTCS at 36wk for pre-eclampsia with severe features, doing well on POD 2. She received IV MgSO4 for 24hr PP (stopped last night). BPs normal to mild range (higher mild range more recently), benign exam. She is hemodynamically stable with no evidence of infection. Post-op Hgb 10.9. complicated by: -A2GDM treated with insulin (lantus 12u am, 10u qhs) -Hx of section x2 -Hx of pre-eclampsia x2 -Severe obesity (BMI 56 currently) -Bipolar disorder taking abilify 15mg PO QD Plan: -Continue routine /post-op care -Carb consistent diet -Fingerstick glucose checks QID. Halved insulin regimen to lantus 5u qam and qhs with good glycemic control (fasting glucose 90's this morning) -Motrin 800mg PO Q8hr. For breakthrough: norco 5/325mg PO Q6hr prn pain -Continue abilify -Continue Nifedipine 30mg XL PO BID. Will also add labetalol 200mg PO TID to try to get good bp control today. Will titrate as needed. -Encourage ambulation and use of IS -Hope for discharge tomorrow if meeting all milestones with bp well controlled (2) care following delivery: Status: Acute (3) Gestational diabetes requiring insulin: Status: Acute (4) Obesity compl pregn//puerperp: Status: Acute (5) Bipolar disease during in third trimester: Status: Acute Time Spent With Patient Time: Total time spent is greater than 50% in coordination of care (as documented) at patient's floor/unit and/or counseling patient:
[2024-05-28] MEDS: LABETALOL 100 MG TABLET 200 MG PO ×2 (15:41→22:02)
[2024-05-28] MEDS: Milk Of Magnesia Susp 30 ML UDC PO (19:33)
[2024-05-28] MEDS: SIMETHICONE 80 MG CHEW PO (19:33)
[2024-05-29] MEDS: HYDROcodone/APAP 5/325 TABLET 2 TAB PO ×2 (04:20→11:01)
[2024-05-29 05:50] VITALS: BP 138/86; PULSE 86; RESP 16; TEMP 36.8; O2SAT 95
[2024-05-29 06:00] VITALS: BP 138/86; PULSE 86
[2024-05-29] MEDS: LABETALOL 100 MG TABLET 200 MG PO (06:00)
[2024-05-29 08:00] VITALS: BP 126/84; PULSE 85; RESP 20; TEMP 36.6; O2SAT 97
[2024-05-29 08:18] VITALS: BP 126/84; PULSE 85
[2024-05-29] MEDS: Milk Of Magnesia Susp 30 ML UDC PO (08:18)
[2024-05-29] MEDS: NIFEdipine XL 30 MG TABCR PO (08:18)
[2024-05-29] MEDS: SIMETHICONE 80 MG CHEW PO (08:18)
[2024-05-29] MEDS: INSULIN GLARGINE (Lantus) 5 UNIT/0.05 ML (PER 5 UNITS) SC (08:19)
[2024-05-29] MEDS: IBUPROFEN TAB 400 MG TABLET 800 MG PO (08:25)
--- NOTE | 2024-05-29 11:15 | ESDS_ITS ---
DS: Providers Provider Date of admission: 05/26/24 15:54 Primary care physician: Physician No Primary/Family Admitting Provider: James Dunaway MD Attending Provider on Admission: James Dunaway MD Consults: 05/26/24 18:22 Referral Routine Comment: Attending Provider on DC: James Dunaway MD Discharging Provider: James Dunaway MD DS: Diagnosis Problem List Completed Was Problem List Reviewed/Reconciled?: Yes Summary/Hosp Course Brief History: patient denied to have any fever , vaginal discharge , bleeding . Is passing gas , had a bowel movement . Overall feeling well. No more elevated blood pressure, is on labetalol and procardia Peripartum Data Procedures: Procedures Operation Date: 05/26/24 18:00 Actual Procedure Side Surgeon p in OB Not Applicable James Dunaway MD Status at Discharge Cognitive/behavioral status at discharge: stable Time Spent with Patient Time attestation: Total time spent providing and/or coordinating discharge services: Exam Vital Signs Temp Pulse Resp BP Pulse Ox O2 Del Method 97.8 F 85 20 126/84 97 Room Air 05/29/24 08:00 05/29/24 08:18 05/29/24 08:00 05/29/24 08:18 05/29/24 08:00 05/29/24 08:00 Constitutional Constitutional: no acute distress Routine HEENT Exam Head: Present normocephalic and atraumatic Eye: Present EOMI and PERRL ENT: Present mucous membranes moist Routine Neck Exam Neck: Present supple and trachea midline Routine Respiratory Exam Respiratory: Present chest non-tender, lungs clear, normal breath sounds and no resp distress Routine Cardiovascular Exam Cardiovascular: Present RRR Routine Abdominal Exam Abdominal: Present soft and normoactive bowel sounds Routine Extremities Exam Extremities: Present full ROM Routine Skin Exam Skin: Present intact, dry and warm Routine Neurological Exam Neurological: Present alert, oriented X3 and CN II-XII intact Routine Psychiatric Exam Psychiatric: Present normal affect and normal thought process Discharge Plan Plan Patient Disposition: HOME (Self Care) Patient condition on transfer: Stable Prescriptions/Referrals Prescriptions/Med Rec: New acetaminophen-codeine 300-15 mg tablet 1 tab PO Q12H PRN (Reason: pain) Qty: 14 0RF ibuprofen 800 mg tablet 800 mg PO Q8H PRN (Reason: pain) Qty: 30 0RF labetalol 200 mg tablet 200 mg PO BID Qty: 30 0RF nifedipine [Procardia XL] 30 mg tablet extended release 24hr 30 mg PO QDAY Qty: 20 0RF No Action ferrous sulfate [iron] 325 mg (65 mg iron) Tablet 325 mg PO QDAY Vitamin 27 mg iron- 0.8 mg Tablet 1 tab PO QDAY acetaminophen [Tylenol Extra Strength] 500 mg Tablet 500 mg PO Q6H PRN (Reason: Pain) metformin 500 mg tablet 500 mg PO BID Qty: 60 0RF aripiprazole 5 mg tablet 15 mg PO QDAY Patient Comments: TAKE THREE TABLETS BY MOUTH EVERY DAY Referrals: No Primary/Family,Physician [Primary Care Provider] - Patient/Caregiver Discharge Instructions Discharge Activity: activity as tolerated and other Other Discharge Activity Instructions:: vaginal rest and no heavy lifting more than 10 pounds for 6 [address] while taking narcotic. keep incision cl noe and dry. Other Discharge Diet Instructions: carb consistent diet Education Materials: C Section Dc Print Language: [place] Activity Restrictions/Additional Instructions: follow up in 1 week for incision check and bp check with Dr. Dunaway. Call clinic to schedule appointment. Stand Alone Forms: Pratibha Award Info., Patient Portal Info Letter Discharge Order Discharge Orders: Discharge (Routine); Ordered 05/29/24 Ordered By: James Dunaway Planned Discharge Date 05/29/24
== END 2024-05-29 12:00 | disposition home or self-care (01) | DRG 540 ==
LOC: S4SX 17:14 → S4NX 21:20
PROVIDERS: Obstetrics & Gynecology; Admitting Provider Student in an Organized Health Care Education/Training Program; Visit Provider Student in an Organized Health Care Education/Training Program
PROC: 10D00Z1 Extraction of Products of Conception, Low, Open Approach (ICD-10-PCS; CPT 59514; principal; 2024-05-26 17:45)
DX: O34.211 Maternal care for low transverse scar from previous cesarean delivery (principal); E66.01 Morbid (severe) obesity due to excess calories; O99.214 Obesity complicating childbirth; Z37.0 Single live birth; O69.81X0 Labor and delivery complicated by cord around neck, without compression, not applicable or unspecified; O24.424 Gestational diabetes mellitus in childbirth, insulin controlled; Z3A.36 36 weeks gestation of pregnancy; O14.14 Severe pre-eclampsia complicating childbirth; O99.344 Other mental disorders complicating childbirth; F31.9 Bipolar disorder, unspecified
CPT/HCPCS: 36415; 59409; 80053; 83735; 84550; 85025; 85384; 85610; 85730; 86780; 86850; 86900; 86901; 94762; A4649; J0689; J1200; J1815; J1885; J2274; J2371; J2405; J2590; J2765; J3010; J3475; J3490; J7120; A9270; J1920; J2270

== ENCOUNTER 2024-08-17 15:31 | Emergency (ER) | payer MEDICAID, SELFPAY ==
[2024-08-17 15:44] VITALS: BP 167/106; PULSE 95; RESP 18; TEMP 37.1; O2SAT 99; BMI 49.5
--- NOTE | 2024-08-17 15:54 | XR_ITS ---
Examination: CT abdomen and pelvis without contrast. Coronal 3-D reconstructions. Sagittal 2-D reconstructions. Date and time of exam:August 17, 2024 at 1746 hours INDICATIONS: Umbilical pain beginning 3 days ago CTDI: vol (mGy): 21.3 DLP: (mGycm): 1234 Technique: Axial images of the abdomen have been obtained, 3 mm slice thickness Intravenous contrast material has not been administered. Low dose protocols were performed. One or more of the following dose reduction techniques were used; automated exposure control, adjustment of the mA and/or KV according to patient size, use of iterative reconstruction technique. Findings: No focal liver or splenic lesions No gallstones No pancreatic edema, normal adrenal glands No renal or ureteral calculi, no hydronephrosis 33 mm umbilical hernia containing fat, possible incarcerated fat No bowel obstruction No diverticulitis Normal appendix Intrauterine device is low in position in the uterus in the uterine body, sagittal image 110 Partially contracted urinary bladder IMPRESSION: 33 mm umbilical hernia containing fat, possibly incarcerated fat, clinical correlation is advised Normal appendix Intrauterine device is low in position in the uterus, in the uterine body
--- NOTE | 2024-08-17 15:54 | PD.EDRME ---
Rapid Medical Screening Exam RME Arrival date/time: 08/17/24 15:31 This is a case of 33-year-old female with history of hernia came in in the emergency room due to abdominal pain with fever headache nausea vomiting and diarrhea for 3 days worsening of the symptoms this patient decided to start consult here in the emergency room Chief Complaint: Abdominal Pain Time Seen by Provider: 08/17/24 15:53 Vital signs: Vital Signs Temperature 98.7 F 08/17/24 15:44 Pulse Rate 95 08/17/24 15:44 Respiratory Rate 18 08/17/24 15:44 Blood Pressure 167/106 H 08/17/24 15:44 Pulse Oximetry (%) 99 08/17/24 15:44 Oxygen Delivery Method Room Air 08/17/24 15:44
[2024-08-17 16:39] LABS: Basophils # (Auto) 0.1 Thou/mm3 (0.0-0.2); Basophils % (Auto) 1 % (0-2.5); Eosinophils # (Auto) 0.2 Thou/mm3 (0.0-0.5); Eosinophils % (Auto) 1 % (0-10); Hematocrit 37.8 % (36.0-46.0); Hemoglobin 12.2 g/dL (12.0-16.0); Immature Granulocytes % (Auto) 0 % (0-0); Immature Granulocytes Auto 0.04 Thou/mm3 (0.00-0.00); Lymphocytes # (Auto) 2.4 Thou/mm3 (1.0-4.8); Lymphocytes % (Auto) 18 % (10-50); Mean Corpuscular HGB Conc 32.3 g/dl (31.0-37.0); Mean Corpuscular Hemoglobin 25.7 pg (25.0-35.0); Mean Corpuscular Volume 80 fL (80-100); Monocytes # (Auto) 0.7 Thou/mm3 (0.0-0.8); Monocytes % (Auto) 5 % (0-12); Neutrophils # (Auto) 9.8 Thou/mm3 (1.8-7.7); Neutrophils % (Auto) 74 % (37-80); Nucleated Red Blood Cell % 0 /100 WBC (0); Platelet Count 398 Thou/mm3 (140-440); RDW Standard Deviation 44.4 fL (36.4-46.3); Red Blood Count 4.75 Miln/mm3 (4.00-5.20); White Blood Count 13.2 Thou/mm3 (3.6-11.0)
[2024-08-17 17:08] LABS: Alanine Aminotransferase 20 U/L (10-49); Albumin, Serum 4.7 gm/dL (3.5-5.0); Albumin/Globulin Ratio 1.5 (1.2-2.2); Alkaline Phosphatase 96 U/L (46-116); Anion Gap 6 (7-16); Aspartate Amino Transferase 19 U/L (0-34); BUN/Creatinine Ratio 19 Ratio (12-20); Bilirubin,Total 0.3 mg/dL (0.3-1.2); Blood Urea Nitrogen 15 mg/dL (9-23); Calcium 9.7 mg/dL (8.3-10.6); Calcium (Corrected) 9.7 mg/dL (8.5-10.1); Carbon Dioxide 27.6 mMol/L (20.0-31.0); Chloride 105 mMol/L (98-107); Creatinine (Component) 0.8 mg/dL (0.6-1.3); Estimated Creatinine Clearance 127.4 mL/min (>60); Globulin 3.1 gm/dL (2.3-3.5); Glucose 102 mg/dL (74-106); Lipase 41 U/L (12-53); Osmolality,Calculated 278 (275-295); Potassium 3.9 mMol/L (3.4-5.1); Sodium 139 mMol/L (136-145); Total Protein 7.8 gm/dL (5.7-8.2); eGFR > 60 See Note
[2024-08-17 17:17] LABS: Collection Type, Urine Clean Catch
[2024-08-17 17:24] LABS: HCG Qualitative,Urine Negative
[2024-08-17 17:27] LABS: Bilirubin,Urine Negative (Negative); Blood,Urine 2+ (Negative); Clarity,Urine Clear (Clear/Hazy); Color,Urine Lt-Yellow (Lt Yel-Yel); Glucose, Urine Negative (Negative); Ketones,Urine Negative (Negative); Leukocyte Esterase,Urine Negative (Negative); Nitrite,Urine Negative (Negative); PH,Urine 5.5 (5.0-7.0); Protein,Urine Negative (Neg - Trace); RBC,Urine 6 /hpf (0-3); Specific Gravity,Urine 1.027 (1.001-1.035); Squamous Epithelial Cell,Urine 12 /hpf (0-5); Urobilinogen,Urine Negative mg/dL (0.0-1.0); WBC,Urine 3 /hpf (0-5)
[2024-08-17 20:39] VITALS: BP 148/90; PULSE 67; RESP 16; TEMP 36.8; O2SAT 97
--- NOTE | 2024-08-17 23:40 | PD.EDABDPN ---
ED Abdominal Pain RME/HPI General Chief Complaint: Abdominal Pain Stated complaint: umbilical hernia pain, nausea and h/a x 2hr Time seen by provider: 08/17/24 15:53 Arrival date/time: 08/17/24 15:31 RME / HPI RME / HPI narrative: 08/17/24 15:31 This is a case of 33-year-old female with history of hernia came in in the emergency room due to abdominal pain with fever headache nausea vomiting and diarrhea for 3 days worsening of the symptoms this patient decided to start consult here in the emergency room --------- Dr. Gray?s Main ED Evaluation: 33yo female with a history of umbilical hernia presents to the ED for a chief complaint of lower abdominal pain for the last few days. No radiation or migration. Patient currently rates her pain a 7 out of 10 in severity. Patient reports associated diarrhea. Patient denies any fever, chills, N/V or any other associated symptoms. Patient does breastfeed. NKA. Related Data Home Medications ?Medication ?Instructions ?Recorded ?Confirmed ferrous sulfate 325 mg (65 mg 325 mg PO QDAY 09/08/19 05/26/24 iron) tablet (iron) vitamins-iron fumarate 27 1 tab PO QDAY 09/08/19 05/26/24 mg iron-folic acid 0.8 mg tablet ( Vitamin) acetaminophen 500 mg tablet 500 mg PO Q6H PRN Pain 11/07/19 05/26/24 (Tylenol Extra Strength) aripiprazole 5 mg tablet 15 mg PO QDAY 05/06/24 05/26/24 Previous Rx's ?Medication ?Instructions ?Recorded metformin 500 mg tablet 500 mg PO BID #60 tabs 05/01/24 acetaminophen 300 mg-codeine 15 mg 1 tab PO Q12H PRN pain #14 tabs 05/29/24 tablet ibuprofen 800 mg tablet 800 mg PO Q8H PRN pain #30 tabs 05/29/24 labetalol 200 mg tablet 200 mg PO BID #30 tabs 05/29/24 nifedipine 30 mg tablet,extended 30 mg PO QDAY #20 tabs 05/29/24 release 24 hr (Procardia XL) Allergies Allergy/AdvReac Type Severity Reaction Status Date / Time No Known Allergies Allergy Unknown Verified 08/17/24 15:34 Review of Systems Review of Systems Systems Reviewed: All systems reviewed, normal except as documented Past Medical History Past Medical History NEUROLOGIC: Negative Neurological Disorders, Seizures or Migraine CARDIAC: Positive Cardiac Disorders and Hypertension; Negative Hypercholesterolemia or Congestive Heart Failure RESPIRATORY: Negative Chronic Obstructive Pulmonary Disease (COPD) GASTROINTESTINAL: Positive Obesity; Negative Gastrointestinal Disorders GENITOURINARY: Negative Genitourinary Disorders or Renal Disease REPRODUCTIVE: Positive Previous Pregnancies; Negative Pelvic Inflammatory Disease MUSCULOSKELETAL: Negative Musculoskeletal Disorders ENDOCRINE: Negative Endocrine Disorders, Diabetes Mellitus Type 1 or Diabetes Mellitus Type 2 HEMATOLOGIC: Negative Blood Disorders PSYCHO/SOCIAL: Positive Bipolar Disorder OTHER HISTORY: Positive Hospitalization; Negative Autoimmune Disease, Blood Transfusions, Blood Transfusion Reaction, Anesthesia Reactions, Organ Transplant, MRSA, Clostridium Difficile or Cancer Family History FAMILY HISTORY: Negative Family Cardiac Disorders Surgical History SURGICAL: Negative Cardiac Surgery, Endocrine Surgery, Ear Surgery, Abdominal Surgery, Nephrectomy, Joint Replacement, Neurologic Surgery, Lumpectomy, Section or Organ Transplant Social History SMOKING STATUS: Never smoker SECOND HAND EXPOSURE: No ED Exam Narrative Physical exam: GEN. APPEARANCE: The patient is alert awake oriented X-3 in no distress, lying down comfortably, does not look ill/toxic. Patient has good eye contact. Patient is cooperative. VITALS: All vitals were reviewed and the pulse ox is 97% on room air which is normal according to my interpretation. HEENT: Normocephalic, atraumatic. Pupils are equal and reactive. Oral mucosa is moist. Patent Nares NECK: Supple, nontender, no thyromegaly, no meningismus, no JVD CHEST: Symmetrical, atraumatic, and with equal expansion , Nontender on palpation no deformity and no crepitus. CARDIOVASCULAR: Heart regular rhythm no murmur or gallop rub or extra beats. LUNGS: Clear to auscultation bilaterally with symmetrical chest rise. No laboring tachypnea or wheezing. No intercostal subcostal retraction. No rales and no rhonchi. ABDOMEN: Soft, flat, nontender to palpation, no guarding or rebound tenderness. There are no abnormal masses palpated. EXTREMITIES: Nontender. No edema. No cyanosis. Patient is able to move all 4 extremities well, with full ROM and good CSM. SKIN: Warm and dry, no jaundice or rashes noted. NEURO: Patient is EDMONDSON x 4, Cranial nerves II through XII grossly intact. There is no focal neurologic deficits noted. GCS is 15, PNS and OPERATOR LIGHTS appear grossly intact. PSYCHIATRIC: Patient is in normal mood and affect. Course Quality Measures none Orders Category Date Time Status CT abdomen pelvis wo con Stat Exams 08/17/24 15:54 Completed CBC Stat Lab 08/17/24 16:23 Completed Comprehensive Metabolic Panel Stat Lab 08/17/24 16:23 Completed HCG Qualitative,Urine Stat Lab 08/17/24 16:51 Completed Lipase Stat Lab 08/17/24 16:23 Completed Urinalysis Stat Lab 08/17/24 16:51 Completed Acetaminophen Tab [Tylenol Tab] Med 08/17/24 23:52 Discontinued 650 mg PO X1 ONE Vital Signs Vital signs: Vital Signs Temperature 98.7 F 08/17/24 15:44 Pulse Rate 95 08/17/24 15:44 Respiratory Rate 18 08/17/24 15:44 Blood Pressure 167/106 H 08/17/24 15:44 Pulse Oximetry (%) 99 08/17/24 15:44 Oxygen Delivery Method Room Air 08/17/24 15:44 Abdominal Pain MDM MDM Narrative MDM Narrative:: Scribe Attestation: 08/17/24 - Nirmala Mancia am scribing for and in the presence of Dr. Gray. Patient is a 33-year-old female is in emerged from concerns for lower abdominal pain. Vital signs and exam as stated. Concern for partial bowel infection, incarcerated hernia, urinary tract infection, pyelonephritis among others. Ordered labs medication for symptom relief as well as CT. Labs with leukocytosis 13. No acute metabolic abnormality. CT scan of the abdomen with 33 mm umbilical hernia containing fat. Possible incarceration. I did discuss with Dr. Chaudhary, states that given that patient has stable symptoms are well-controlled can discharge to home and follow-up in his clinic. On reevaluation patient hemodynamically stable not in distress will discharge home with close return precautions follow-up with her primary care doctor as well as on-call surgeon Dr. Chaudhary in his clinic. Patient data External records reviewed:: [facility] previous records (Per chart review, patient was seen here on 08/30/22 for abdominal pain.) Clinical information provided by:: patient Social determinants that could affect healthcare access:: none Patient has the following chronic illnesses:: none How is presenting disease/condition affected by chronic disease/condition?: no chronic disease Evaluation data The following diagnostics were reviewed and interpreted by me:: lab results and radiology exam(s) Lab and/or radiology exams considered but not ordered:: none Interpretation Summary: WBC 13.2, CMP normal, Lipase normal, UA negative for UTI, HCG negative. ------ [facility] Report Signed Patient: LEONARDO BUTLER Record#: [id number] Birthdate: 1990 Age/Sex: 33 / F Location: [facility] Attending Dr: Ordering Physician: Lakesha Villalpando Date of Service: 08/17/24 Procedure(s): CT abdomen pelvis wo con Accession Number(s): [id number] cc: Raul Mitchell MD; NO PRIMARY/FAMILY,PHYSICIAN; Lakesha Villalpando~ Examination: CT abdomen and pelvis without contrast. Coronal 3-D reconstructions. Sagittal 2-D reconstructions. Date and time of exam:August 17, 2024 at 1746 hours INDICATIONS: Umbilical pain beginning 3 days ago CTDI: vol (mGy): 21.3 DLP: (mGycm): 1234 Technique: Axial images of the abdomen have been obtained, 3 mm slice thickness Intravenous contrast material has not been administered. Low dose protocols were performed. One or more of the following dose reduction techniques were used; automated exposure control, adjustment of the mA and/or KV according to patient size, use of iterative reconstruction technique. Findings: No focal liver or splenic lesions No gallstones No pancreatic edema, normal adrenal glands No renal or ureteral calculi, no hydronephrosis 33 mm umbilical hernia containing fat, possible incarcerated fat No bowel obstruction No diverticulitis Normal appendix Intrauterine device is low in position in the uterus in the uterine body, sagittal image 110 Partially contracted urinary bladder IMPRESSION: 33 mm umbilical hernia containing fat, possibly incarcerated fat, clinical correlation is advised Normal appendix Intrauterine device is low in position in the uterus, in the uterine body Dictated By: Raul Mitchell MD Signed By: <Electronically signed by Raul Mitchell MD in OV> 08/17/24 0530 Medications / Prescriptions Medications or Prescriptions considered but not ordered:: none Medication administrations:: Medication Administration History Discontinued Medications Acetaminophen (Acetaminophen 325 Mg Tablet) 650 mg PO X1 ONE Stop: 08/17/24 23:53 Last Admin: 08/18/24 00:41 Dose: 650 mg Documented By: JAH see above Consultations Consultation(s) initiated? (list below): Yes Consultation #1 (Physician, Specialty, Details): Discussed case with Dr. Chaudhary from general surgery regarding consultation. Discussed patients ED course, exam findings, labs, and radiology results. States as long as the patient's pain is well controlled, she can follow-up with him as an outpatient. Time: 23:53 Diagnosis Differential diagnosis abdominal pain: small bowel obstruction and other (UTI, pyelonephritis, incarcerated hernia) Most likely diagnosis given after review of the tests above:: see clinical impression below Admission Indicated Admission indicated?: not indicated Admission Request Was there a request for admission?: No Disposition Plan Disposition Plan: Discharge Discharge Attestation Discharge Attestation: The patient and all family members were given an opportunity to ask questions and understood the discharge instructions. Discharge instructions specifically effects, indications for sooner follow up or return to the emergency department, and the expected course of current diagnosis. Patient condition: Stable Discharge Plan Plan Patient Disposition: HOME (Self Care) Prescriptions/Referrals Prescriptions/Med Rec: No Action ferrous sulfate [iron] 325 mg (65 mg iron) Tablet 325 mg PO QDAY Vitamin 27 mg iron- 0.8 mg Tablet 1 tab PO QDAY acetaminophen [Tylenol Extra Strength] 500 mg Tablet 500 mg PO Q6H PRN (Reason: Pain) metformin 500 mg tablet 500 mg PO BID Qty: 60 0RF acetaminophen-codeine 300-15 mg tablet 1 tab PO Q12H PRN (Reason: pain) Qty: 14 0RF ibuprofen 800 mg tablet 800 mg PO Q8H PRN (Reason: pain) Qty: 30 0RF labetalol 200 mg tablet 200 mg PO BID Qty: 30 0RF nifedipine [Procardia XL] 30 mg tablet extended release 24hr 30 mg PO QDAY Qty: 20 0RF aripiprazole 5 mg tablet 15 mg PO QDAY Patient Comments: TAKE THREE TABLETS BY MOUTH EVERY DAY Referrals: Rula Chaudhary MD [Physician] - In 1 week No Primary/Family,Physician [Primary Care Provider] - In 1 week Problem List Clinical Impression: Abdominal pain Patient/Caregiver Discharge Instructions Education Materials: Abdominal Pain Additional Instructions: Please make an appointment with Dr. Chaudhary this week for further evaluation of your hernia. Print Language: Azerbaijani Stand Alone Forms: [facility] Award Info., Patient Portal Info Letter
[2024-08-18] MEDS: ACETAMINOPHEN 325 MG TABLET 650 MG PO (00:41)
[2024-08-18 01:42] VITALS: PULSE 76; RESP 17; O2SAT 99
== END 2024-08-18 01:49 | disposition home or self-care (01) ==
PROVIDERS: Nurse Practitioner Family; Emergency Provider Emergency Medicine
DX: R10.9 Unspecified abdominal pain (principal); K42.9 Umbilical hernia without obstruction or gangrene
CPT/HCPCS: 36415; 74176; 80053; 81001; 81025; 83690; 85025; 99284; A9270